=== PATIENT | male | born 1955 | race Caucasian/White ===

== ENCOUNTER 2017-12-13 18:15 | Emergency (ER) | payer OTHER ==
--- NOTE | 2017-12-13 19:11 | PDOC ---
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 Patient states that he was using the bathroom and as he went to pull up his pants, the growth on his left story caught his elastic waistband, puncturing it. He stated that it began bleeding profusely. But since arriving to the ER, the bleeding has subsided. He denies any recent fevers, chills, headache or dizziness. He denies any recent nausea, vomit, diarrhea or constipation. He denies any recent chest pain or shortness of breath. He denies any recent dysuria, frequency, urgency or hematuria. Allergies: Ritalin Primary Care Physician:Jose Villarreal Hx: Former smoking 1982 Bilateral peripheral venous stasis changes. ROS General: No fevers or chills, no weakness, no weight loss HEENT: No change in vision. No sore throat, No ear pain Cardiovascular: No chest pain or shortness of breath Respiratory:No cough, or wheezing. Gastrointestinal: No nausea, vomiting, diarrhea or constipation, No rectal bleeding Genitourinary: No dysuria, hematuria, or frequency Musculoskeletal: No joint or muscle pain or swelling Neurologic: No headache, vertigo, dizziness or loss of consciousness Psychiatric: No depression Skin: + bloody left story growth. Endocrine: No increased thirst or abnormal weight change Allergic: No skin or latex allergy All other systems reviewed and normal PE General: Well-nourished well-developed individual, no acute distress HEENT: Throat: Normal, tonsils normal, no erythema or exudate Neck: Supple, no meningeal signs, no lymphadenopathy Eyes::Pupils equal reactive and round, extraocular motion intact Chest: Nontender to palpation Cardiac: S1-S2 normal, regular rate and rhythm, no murmurs rubs or gallops Respiratory: Lungs clear to auscultation bilateral Abdomen: Soft, nondistended, normal bowel sounds, nontender to palpation diffusely Extremities: Bilateral legs - chronic venous statis. Skin: 2 by 2 cm growth that is violaceous with area of excoriation and small piece of avulsed skin. No active bleeding. Neuro: Alert and oriented x3, nonfocal exam, grossly intact, normal gait Psych: Normal mood and affect <Tara Leyva - Last Filed: 12/13/17 20:33> - General History Source: Patient Exam Limitations: No Limitations - History of Present Illness Initial Comments: A portion of this note was documented by scribe services under my direction. I have reviewed the details of the note, within reason, and agree with the documentation. The case summary and management plan written by me. Assessment and plan: This is a 62-year-old male who comes in complaining of some bleeding from a lesion on his story. On exam the patient has a relatively large purplish lesion that has an area of excoriation and avulsion of the skin. There is no bleeding at the time of my evaluation, dressing was applied and patient discharged home 12/13/17 22:29 <Cindy Linares I - Last Filed: 12/13/17 22:30> - General Chief Complaint: Laceration Stated Complaint: BLEEDING FROM LEFT STORY LESION Time Seen by Provider: 12/13/17 19:07 Past History <Tara Leyva - Last Filed: 12/13/17 20:33> <Cindy Linares I - Last Filed: 12/13/17 22:30> - Past Medical History Allergies/Adverse Reactions: Allergies Allergy/AdvReac Type Severity Reaction Status Date / Time methylphenidate Allergy Unknown Verified 12/13/17 19:13 [From Ritalin] Home Medications: Ambulatory Orders Citalopram Hydrobromide [Celexa -] 40 mg PO DAILY 12/13/17 Metoprolol Succinate [Toprol Xl] 100 mg PO DAILY 12/13/17 Omeprazole Magnesium [Prilosec Otc] 20 mg PO DAILY 12/13/17 Simvastatin [Zocor -] 40 mg PO HS 12/13/17 Warfarin Na [Coumadin] 1 mg PO SUTUTHSA 12/13/17 Warfarin Na [Coumadin] 2 mg PO MOWEFR 12/13/17 Review of Systems - Review of Systems Comments:: 12/13/17 20:21 see HPI <Tara Leyva - Last Filed: 12/13/17 20:33> *Physical Exam - Vital Signs Last Vital Signs Temp Pulse Resp BP Pulse Ox 98.7 F 73 18 136/76 97 12/13/17 18:46 12/13/17 18:46 12/13/17 18:46 12/13/17 18:46 12/13/17 18:46 - Physical Exam Comments: 12/13/17 20:21 See HPI <Tara Leyva - Last Filed: 12/13/17 20:33> *DC/Admit/Observation/Transfer <Tara Leyva - Last Filed: 12/13/17 20:33> <Cindy Linares I - Last Filed: 12/13/17 22:30> Diagnosis at time of Disposition: Leg skin lesion, left - Discharge Dispostion Disposition: HOME Condition at time of disposition: Good - Referrals Referrals: Jose Matute [Primary Care Provider] - - Patient Instructions Additional Instructions: Apply some bacitracin to the skin lesion once a day with a Band-Aid or dressing to protect it and keep it clean until it is scabbed over. The lesion should be biopsied to make sure it isn't a form a skin cancer so follow-up with your doctor for referral to a surgeon who can do the biopsy. Return to the emergency department immediately with ANY new, persistent or worsening symptoms. Continue any medications as previously prescribed by your physician. You should follow up with your primary doctor as soon as possible regarding today's emergency department visit. . Please make sure your doctor reviews the results of your emergency evaluation. Thank you for coming to the Emergency Department today for your care. It was a pleasure to see you today. Please note that your evaluation is INCOMPLETE until you follow-up with your doctor. - Post Discharge Activity
[2017-12-13 19:30] VITALS: BP 136/76; PULSE 73; TEMP 98.7; BMI 39.4
== END 2017-12-13 20:15 | disposition home or self-care (01) ==
LOC: FER 18:15
DX: L98.8 Other specified disorders of the skin and subcutaneous tissue (principal); Z85.820 Personal history of malignant melanoma of skin; R06.02 Shortness of breath; I25.10 Atherosclerotic heart disease of native coronary artery without angina pectoris; I10 Essential (primary) hypertension; E78.5 Hyperlipidemia, unspecified; Z79.01 Long term (current) use of anticoagulants
CPT/HCPCS: 99282-25